=== PATIENT | female | born 1985 | race African-American/Black ===

== ENCOUNTER 2017-08-08 15:09 | Emergency (ER) | payer MEDICAID ==
[2017-08-08 15:17] VITALS: BP 115/86
--- NOTE | 2017-08-08 15:46 | ER Document Report ---
ED Oral Problem - General Chief Complaint: Toothache Stated Complaint: MOUTH PAIN Time Seen by Provider: 08/08/17 15:40 Mode of Arrival: Ambulatory Information source: Patient TRAVEL OUTSIDE OF THE [place] IN LAST 30 DAYS: No - HPI Patient complains to provider of: Toothache - pt c/o L lower molar pain for the past week - Related Data Allergies/Adverse Reactions: amoxicillin Allergy (Verified 08/08/17 15:15) aspirin Allergy (Verified 08/08/17 15:15) Penicillins Allergy (Verified 08/08/17 15:15) Past Medical History - General Information source: Patient - Social History Smoking Status: Never Smoker Chew tobacco use (# tins/day): No Frequency of alcohol use: None Drug Abuse: None Family History: None Patient has suicidal ideation: No Patient has homicidal ideation: No Renal/ Medical History: Denies: Hx Peritoneal Dialysis Past Surgical History: Reports: Hx Section - [id number] Only: Hx Vascular Surgery - [place] [facility] Review of Systems - Review of Systems Constitutional: No symptoms reported EENT: See HPI, Dental problem Cardiovascular: No symptoms reported Respiratory: No symptoms reported Gastrointestinal: No symptoms reported -: Yes All other systems reviewed and negative Physical Exam - Vital signs Vitals: Temp Pulse Resp BP Pulse Ox 98.7 F 86 16 115/86 H 99 08/08/17 15:16 08/08/17 15:16 08/08/17 15:16 08/08/17 15:16 08/08/17 15:16 - General General appearance: Appears well In distress: None - HEENT Pharynx: Other - pt has tenderness to percussion of L lower molar diffusely with partial avulsion. Course - Vital Signs Vital signs: Temp Pulse Resp BP Pulse Ox 98.7 F 86 16 115/86 H 99 08/08/17 15:16 08/08/17 15:16 08/08/17 15:16 08/08/17 15:16 08/08/17 15:16 Discharge - Discharge Clinical Impression: Dentalgia Condition: Stable Disposition: HOME, SELF-CARE Instructions: [facility], Toothache ([facility]) Additional Instructions: rest, take medications as prescribed, return if worse Prescriptions: Cephalexin Monohydrate [Keflex 500 mg Capsule] 500 mg PO QID #20 capsule Tramadol HCl 50 mg PO TID #14 tablet
== END 2017-08-08 16:04 | disposition home or self-care (01) ==
LOC: ER 15:09
DX: K08.89 Other specified disorders of teeth and supporting structures (principal)
CPT/HCPCS: 99282

== ENCOUNTER 2017-08-26 18:29 | Emergency (ER) | payer OTHER, MEDICAID ==
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
[2017-08-26 22:23] VITALS: BP 145/99
== END 2017-08-26 22:20 | disposition home or self-care (01) ==
LOC: ER 18:29
DX: S16.1XXA Strain of muscle, fascia and tendon at neck level, initial encounter (principal); M54.2 Cervicalgia; V79.50XA Passenger on bus injured in collision with unspecified motor vehicles in traffic accident, initial encounter
CPT/HCPCS: 72040; 99283

== ENCOUNTER 2017-10-30 11:38 | Emergency (ER) | payer MEDICAID, OTHER ==
--- NOTE | 2017-10-30 12:37 | ER Document Report ---
HPI - HPI Pain Level: Denies Notes: Patient is a 32-year-old female with no significant past medical history who presents to the ED complaining of urinary urgency, frequency, voiding small amounts 3 days. Patient states that she has also noticed some scant vaginal clear discharge with a pink tinge to it. Patient states that she is sexually active, but is not concerned with any STD or STI. Patient states that she has no associated pain or discomfort. Patient states that she is here just to have her urine checked for an infection. Patient denies . She is eating and drinking without any difficulties. She is otherwise having normal bowel movements. Denies any headache, fever, neck pain, URI, sore throat, chest pain , palpitations, syncope, cough, shortness of breath, wheeze, dyspnea, abdominal pain, nausea/vomiting/diarrhea, urinary retention, dysuria, hematuria, back pain , loss of control of bowel or bladder, numbness/tingling, saddle anesthesia, muscle paralysis/weakness, or rash. - ROS Systems Reviewed and Negative: Yes All other systems reviewed and negative Past Medical History - Social History Smoking Status: Never Smoker Family History: None Renal/ Medical History: Denies: Hx Peritoneal Dialysis Past Surgical History: Reports: Hx Section - [id number] Only: Hx Vascular Surgery - [place] [facility] Vertical Provider Document - CONSTITUTIONAL Agree With Documented VS: Yes Notes: PHYSICAL EXAMINATION: GENERAL: Well-appearing, well-nourished and in no acute distress. HEAD: Atraumatic, normocephalic. EYES: Pupils equal round and reactive to light, extraocular movements intact, sclera anicteric, conjunctiva are normal. ENT: Nares patent and without discharge. oropharynx clear without exudates. No tonsilar hypertrophy or erythema. Moist mucous membranes. NECK: Normal range of motion, supple without lymphadenopathy LUNGS: Breath sounds clear to auscultation bilaterally and equal. No wheezes rales or rhonchi. HEART: Regular rate and rhythm without murmurs, rubs, gallops. ABDOMEN: Soft, nontender, nondistended abdomen. No guarding, no rebound. No masses appreciated. Normal bowel sounds present. No CVA tenderness bilaterally. /Pelvic: Pt declined with risks/benefits understood. Musculoskeletal: FROM to passive/active. Strength 5+/5. Extremities: No cyanosis, clubbing, or edema b/l. Peripheral pulses 2+. Capillary refill less than 3 seconds. NEUROLOGICAL: Normal speech, normal gait. Normal sensory, motor exams PSYCH: Normal mood, normal affect. SKIN: Warm, Dry, normal turgor, no rashes or lesions noted. - INFECTION CONTROL TRAVEL OUTSIDE OF THE [place] IN LAST 30 DAYS: No - RESPIRATORY O2 Sat by Pulse Oximetry: 99 Course - Re-evaluation Re-evalutation: 10/30/17 12:35 Advised patient that I would like to perform a pelvic exam and perform further testing for chlamydia, gonorrhea, bacterial vaginosis, yeast, trichomonas, etc. Patient declined pelvic exam as well as prophylactic treatment. Risks and benefits thoroughly understood. Patient just wants her urine checked today. 10/30/17 14:06 Patient is an afebrile, well-hydrated, 32-year-old female who presents to the ED with an acute UTI. Vitals are stable. PE is otherwise unremarkable. See urinalysis results. Urine cultures pending. HCG was negative. As above patient declined pelvic exam at this time. Patient is tolerating p.o. without any difficulties. I will send her home with a prescription for Cipro to take as directed. Low suspicion/risk for acute appendicitis, bowel obstruction, acute cholecystitis, acute cholangitis, perforated diverticulitis, incarcerated hernia, pancreatitis, perforated ulcer, peritonitis, sepsis, ectopic , tubo-ovarian abscess, ovarian torsion, or other systemic emergent condition at this time. Patient is aware that her condition can change from initial presentation and she needs to monitor symptoms closely and seek medical attention if any acute changes. Conservative measures otherwise for symptoms. Recheck with OBGYN in 3-5 days. Recheck with your PCM in 3-5 days. Return to the ED with any worsening/concerning symptoms otherwise as reviewed in discharge. Patient is in agreement. - Vital Signs Vital signs: Temp Pulse Resp BP Pulse Ox 98.8 F 57 L 16 132/74 H 99 10/30/17 11:52 10/30/17 11:52 10/30/17 11:52 10/30/17 11:52 10/30/17 11:52 Discharge - Discharge Clinical Impression: UTI (urinary tract infection) Qualifiers: Urinary tract infection type: site unspecified Hematuria presence: with hematuria Qualified Code(s): N39.0 - Urinary tract infection, site not specified ; R31.9 - Hematuria, unspecified; R31.9 - Hematuria, unspecified Condition: Stable Disposition: HOME, SELF-CARE Instructions: Urinary Tract Infection ([facility]), Ciprofloxacin ([facility]) Additional Instructions: Push fluids (i.e. water, cranberry juice) Proper hygenic technique Keep the skin clean Tylenol/ibuprofen as needed Take medications as directed F/u with your PCM in 3-5 days for a recheck Schedule a f/u with OBGYN Consider consult with a Urologist for ongoing/worsening symptoms. Return to the ED with any worsening symptoms and/or development of fever, headache, chest pain, palpitations, syncope, shortness of breath, trouble breathing, abdominal pain, n/v/d, blood in stool/urine, loss of control of bowel /bladder, urinary retention, or other worsening symptoms that are concerning to you. Prescriptions: Ciprofloxacin HCl [Cipro 500 mg Tablet] 500 mg PO BID #14 tablet [facility]errals[facility] [Provider Group[facility] - Follow up in 3-5 days
[2017-10-30 13:46] LABS: APPEARANCE,URINE CLOUDY; BILIRUBIN,URINE NEGATIVE (NEGATIVE); COLOR,URINE AMBER; GLUCOSE, URINE NEGATIVE (NEGATIVE); KETONES,URINE 20 mg/dL (NEGATIVE); LEUKOCYTE ESTERASE,URINE LARGE (NEGATIVE); NITRITE,URINE NEGATIVE (NEGATIVE); PROTEIN,URINE 100 mg/dL (NEGATIVE); URINE SPECIFIC GRAVITY 1.023
[2017-10-30 14:59] VITALS: BP 128/88
== END 2017-10-30 14:34 | disposition home or self-care (01) ==
LOC: ER 11:38
DX: N39.0 Urinary tract infection, site not specified (principal); R31.9 Hematuria, unspecified
CPT/HCPCS: 81001; 81025; 87086; 87088; 87186; 99283

== ENCOUNTER 2018-10-21 18:38 | Emergency (ER) | payer SELFPAY ==
[2018-10-21 19:23] VITALS: BP 140/98
--- NOTE | 2018-10-21 21:16 | RADIOLOGY REPORT (SQ) ---
EXAM DESCRIPTION: XR HAND 3 OR MORE VIEWS COMPLETED DATE/TME: 10/21/2018 20:33 CLINICAL HISTORY: 33 years, Female, swelling middle finger COMPARISON: None. NUMBER OF VIEWS: 3 TECHNIQUE: 3 view left hand LIMITATIONS: None. FINDINGS: Soft tissue swelling of the distal third digit. No soft tissue gas. Negative for fracture. Joint spaces are preserved IMPRESSION: Distal soft tissue swelling of the third digit. Remainder unremarkable copyright 2010 [employer]- All Rights Reserved
[2018-10-21] MEDS ORDERED: IBUPROFEN 600 MG TABLET PO ONE (21:42)
[2018-10-22] MEDS ORDERED: CLINDAMYCIN HCL 150 MG CAPSULE PO ONE (00:35)
[2018-10-22] MEDS ORDERED: HYDROCODONE/ACETAMINOPHEN 5-325 MG (6 TAB/ER DISP) PO PRN (00:38)
--- NOTE | 2018-10-22 00:39 | ER Document Report ---
HPI - HPI Patient complains to provider of: swollen L middle finger tip Time Seen by Provider: 10/21/18 23:10 Pain Level: 4 Context: Pleasant 33-year-old female presents to the emergency department for swelling of her left middle finger at the DIP. She states is been going on for about 4 days and became unbearable and is throbbing with intense pain. Patient denies fever, chills, nausea, vomiting, any other infectious symptoms. Patient does have full range of motion in the finger. Patient denies any trauma to the finger. Patient denies any recent manicures or frequent nail manicures. No other complaints - REPRODUCTIVE Reproductive: DENIES: : Past Medical History - Social History Smoking Status: Unknown if Ever Smoked Family History: None Patient has suicidal ideation: No Patient has homicidal ideation: No Renal/ Medical History: Denies: Hx Peritoneal Dialysis Past Surgical History: Reports: Hx Section - [id number] Only: Hx Vascular Surgery - [place] [facility] Vertical Provider Document - CONSTITUTIONAL Notes: PHYSICAL EXAMINATION: Reviewed vital signs and charting by RN GENERAL: Alert, interacts well. No acute distress. HEAD: Normocephalic, atraumatic. EYES: Pupils equal, roundExtraocular movements intact NEUROLOGICAL: Alert and oriented to situation. Normal speech. PSYCH: Normal affect, normal mood. SKIN: Warm, dry, normal turgor. - INFECTION CONTROL TRAVEL OUTSIDE OF THE [place] IN LAST 30 DAYS: No - MUSCULOSKELETAL/EXTREMETIES Musculoskeletal/Extremeties: MAEW, Tender - Exquisite tenderness to light touch, patient complains that DIP of left middle finger is throbbing., Edema - Moderate edema of left middle finger DIP. No evidence of fluctuance. Most consistent with a felon. Course - Re-evaluation Re-evalutation: 10/22/18 01:56 Well-appearing female presents with a left middle finger felon. Performed a digital block of the left middle finger and completed an incision and drainage. She tolerated procedure well I will then put her on Keflex 500 mg p.o. 4 times a day for 7 days and Bactrim twice a day for 7 days. She will get her first dose of antibiotics here in the emergency department. - Vital Signs Vital signs: Temp Pulse Resp BP Pulse Ox 98.7 F 62 21 H 140/98 H 100 10/21/18 19:20 10/21/18 19:20 10/21/18 19:20 10/21/18 19:20 10/21/18 19:20 Procedures - Incision and Drainage Left Mid- Finger 3rd digit Type: Simple Anesthetic type: 2% Lidocaine Blade size: 11 I&D procedure: Shurclens applied Incision Method: Incision made by scalpel Discharge - Discharge Clinical Impression: Felon of finger of left hand Condition: Good Disposition: HOME, SELF-CARE Additional Instructions: Felon (Fingertip Abscess) You have a pus-forming infection of your fingertip. This is called a felon. A felon can cause permanent damage to the finger pad if untreated. If the infection has formed a pocket of pus, it will require incision and drainage (lancing). Sometimes a packing or wick is placed into the abscess cavity for a few days. You have been prescribed Keflex and Bactrim. You got your first dose of antibiotics here in the emergency department. He will take Keflex 500 mg by mouth 4 times per day for 7 days and Bactrim twice a day for 7 days. I have also given you the bottle of chlorhexidine wash take a teaspoon of that and diluted in a small bowl of water and soak your hand 3 times a day with that.. Elevation and application of heat can be helpful. The wound will heal with surprisingly little scar. This will take a two or three weeks. If you develop fever, chilling, worsening pain, or increasing swelling in the area, call the doctor or return immediately. Prescriptions: Clindamycin HCl 300 mg PO TID 7 Days #21 capsule Forms: Return to Work
== END 2018-10-22 00:53 | disposition home or self-care (01) ==
LOC: ER 18:38
PROC: 0H9GXZZ Drainage of Left Hand Skin, External Approach (ICD-10-PCS; principal; 2018-10-21)
DX: L03.012 Cellulitis of left finger (principal); M79.89 Other specified soft tissue disorders
CPT/HCPCS: 99283